=== PATIENT | male | born 1985 | race Caucasian/White ===

== ENCOUNTER 2019-07-23 16:46 | Emergency (ER) | payer MEDICAID ==
[~2019-07-23] VITALS: Ht 180.3 cm; Wt 202.3 kg
[2019-07-23 16:55] VITALS: BP 144/71
--- NOTE | 2019-07-23 17:02 | NUR ---
Patient ambulated to bed 2. RN evaluating patient at bedside.
--- NOTE | 2019-07-23 17:10 | NUR ---
PT C/O ABSCESS ON THE RIGHT MIDDLE TRAPEZIUS AREA WITH PAIN AND PURULENT DRAINAGE FOR 8-9 DAYS. PT REPORTS THE PAIN RADIATES TO HIS RIGHT ARM. PT HAS HX OF HIV, OTHERWISE HE DENIES ANY FEVER, CP, SOB, COUGH, N/V/D AT THIS TIME; PATIENT STATES PAIN IS CONSITENT WITH 10/10 INTENSITY; VSS; PATIENT POSITIONED FOR COMFORT; HOB ELEVATED; BEDRAILS UP X1; BED DOWN. ER MD MADE AWARE OF PT STATUS.
[2019-07-23] MEDS ORDERED: KETOROLAC 60 MG/2 ML VIAL IM ONE (17:35)
[2019-07-23] MEDS ORDERED: LIDOCAINE MPF 1% 10 MG/ML VIAL INJ ONE (17:40)
--- NOTE | 2019-07-23 18:00 | NUR ---
BOB CÁRDENAS IS IMPLEMENTING I&D AT BEDSIDE.
--- NOTE | 2019-07-23 18:30 | NUR ---
pressure dressing placed on the i&d area for pt.
[2019-07-23 18:48] VITALS: BP 138/70
--- NOTE | 2019-07-23 18:48 | NUR ---
Patient discharged with v/s stable. Written and verbal after care instructions given and explained. Patient alert, oriented and verbalized understanding of instructions. Ambulatory with steady gait. All questions addressed prior to discharge. ID band removed. Patient advised to follow up with PMD. Rx of Tylenol, Bactrim, and Keflex given. Patient educated on indication of medication including possible reaction and side effects. Opportunity to ask questions provided and answered.
== END 2019-07-23 18:48 | disposition home or self-care (01) ==
LOC: MED 16:46
DX: L02.212 Cutaneous abscess of back [any part, except buttock and flank] (principal)
CPT/HCPCS: 10060; 96372; 99283; J1885; J2001